=== PATIENT | male | born 1990 | race Caucasian/White ===

== ENCOUNTER 2016-11-07 18:38 | Emergency (ER) | payer SELFPAY ==
[2016-11-07 18:46] VITALS: TEMP 98.4
--- NOTE | 2016-11-07 19:00 | EDPHY ---
H & P Stated Complaint: l calf pain non traumatic Time Seen by Provider: 11/07/16 18:51 HPI/ROS: Chief Complaint: Leg pain HPI: 26-year-old male presenting with 1 week of left calf pain. Patient states it is constant aching. Is but tried that stretched out but is not helping. Does not recall any injuries. Is not red or particularly swollen. Father does have a history of blood clots but has a history of Genesis's. No chest pain or shortness of breath. No. Is of immobility or long travel. ROS: 10 point Review of Systems is negative except as noted in the HPI. PMH: None Medications: None Allergies: None Social History: No smoking, no alcohol, occasional marijuana Family History: non-contributory Physical Exam: Gen: Awake, Alert, No Distress HEENT: Nose: no rhinorrhea Eyes: PERRLA, EOMI Mouth: Moist mucosa Ext: no edema, mod calf tenderness, both calves are the same circumference, no erythema Skin: no rash Neuro: CN II-XII intact, Sensation grossly intact, Strength 5/5 in bilateral upper and lower extremities - Personal History Current Tetanus/Diphtheria Vaccine: Yes - Medical/Surgical History Hx Asthma: No Hx Chronic Respiratory Disease: No Hx Diabetes: No Hx Cardiac Disease: No Hx Renal Disease: No Hx Cirrhosis: No Hx Alcoholism: No Hx HIV/AIDS: No Hx Splenectomy or Spleen Trauma: No Other PMH: lymes disease - Social History Smoking Status: Never smoked Constitutional: Initial Vital Signs Temperature (C) 36.9 C 11/07/16 18:43 Heart Rate 95 11/07/16 18:43 Respiratory Rate 16 11/07/16 18:43 Blood Pressure 100/76 11/07/16 18:43 O2 Sat (%) 99 11/07/16 18:43 O2 Delivery Mode Room Air Allergies/Adverse Reactions: No Known Allergies Allergy (Unverified 11/07/16 18:42) Home Medications: Medication Instructions Recorded NK [No Known Home Meds] 11/07/16 Medical Decision Making - Diagnostics Imaging Results: Imaging Impressions Extremity Venous Study 11/07/16 19:00 Impression: No evidence of deep vein thrombosis in the left lower extremity. Results called and discussed with Carlos Pan MD on 11/07/2016 at 19:41 Imaging: Discussed imaging studies w/ weight caller Radiologist ED Course/Re-evaluation: Left leg duplex ultrasound is negative for DVT. Departure - Departure Disposition: Home, Routine, Self-Care Clinical Impression: Leg pain Condition: Good Instructions: Leg Pain (ED) Additional Instructions: May take ibuprofen and acetaminophen as needed for the pain Follow up with primary care doc in about a week if symptoms are not improving. Referrals: Constantino Cannon MD [Primary Care Provider] - As per Instructions
[2016-11-07 20:08] VITALS: BP 125/76; PULSE 81; RESP 14; O2SAT 94
== END 2016-11-07 20:00 | disposition home or self-care (01) ==
DX: M79.605 Pain in left leg (principal)